=== PATIENT | female | born 1985 | race Caucasian/White ===

== ENCOUNTER 2019-05-06 15:56 | Emergency (ER) | payer OTHER ==
[~2019-05-06] VITALS: Ht 167.6 cm; Wt 106.6 kg
--- NOTE | 2019-05-06 16:11 | NUR ---
ED Nurse Note: Patient walked in c/o worsening back pain that radiates to LLE; hx of back injury 2 month while lfting heavy boxes at work. Pt is A&O x4, V/S stable with no s/s of acute distress noted at this time. Pt rates pain at 8/10. PA at bedside evaluating the pt.
[2019-05-06 16:17] VITALS: BP 123/75
[2019-05-06] MEDS ORDERED: CELEXA20 MG ORAL (16:20)
[2019-05-06] MEDS ORDERED: SYNTHROID150 MCG ORAL (16:20)
[2019-05-06] MEDS ORDERED: WELLBUTRIN XL150 MG ORAL (16:20)
[2019-05-06] MEDS ORDERED: LEVONO-E ESTRA1 EACH PO (16:21)
[2019-05-06] MEDS ORDERED: Ketorolac 30mg Inj IM ONE (17:00)
--- NOTE | 2019-05-06 17:48 | Emergency Room Report ---
History of Present Illness General Chief Complaint: Back Pain-No Injury Source: Patient Present Illness HPI 33-year-old female presents to the emergency department complaining of 6 out of 10 severity left-sided low back pain with intermittent radiation down into the left thigh and left calf. Patient reports this symptom is been going on for 2 months and she also has another complaint of right calf pain acute onset x4 days. Patient denies trauma or fall. Patient reports that onset of her back pain was appreciated after lifting a heavy box while at work. Patient states that she has been treating it conservatively at home with rest, heat, ice and ibuprofen. Patient reports she has had no relief of her symptoms. Patient denies smoking history she reports she is on oral control she denies prolonged sitting/ travel. Denies chest pain, shortness of breath, palpitations or hemoptysis. Saddle anesthesia, incontinence or urinary retention. 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 Hx Pacemaker: No Hx Asthma: No Hx COPD: No Hx Diabetes: No Hx Cancer: Yes - Hodgkin's disease Hx Gastrointestinal Problems: No Hx Dialysis: No History Of Psychiatric Problem: No Hx Neurological Problems: No Hx Cerebrovascular Accident: No Hx Seizures: No Review of Systems All Other Systems: negative except mentioned in HPI Physical Exam Vital Signs Date Time Temp Pulse Resp B/P (MAP) Pulse Ox O2 Delivery O2 Flow Rate FiO2 05/06/19 16:11 98.1 95 18 123/75 (91) 97 Room Air Sp02 EP Interpretation: reviewed, normal General Appearance: no apparent distress, alert, GCS 15, non-toxic Head: normocephalic, atraumatic Eyes: bilateral eye normal inspection, bilateral eye PERRL ENT: hearing grossly normal, normal voice Neck: full range of motion Respiratory: chest non-tender, lungs clear, normal breath sounds, speaking full sentences Cardiovascular #1: regular rate, rhythm, no edema Cardiovascular #2: 2+ dorsalis pedis (R) - post. tibial, 2+ dorsalis pedis (L) - post tibial Gastrointestinal: normal bowel sounds, non tender, soft Rectal: deferred Genitourinary: normal inspection Musculoskeletal: back normal, gait/station normal - Compensatory gait, favoring the right leg., normal range of motion, calf tenderness - Right, other - negative White test. Positive Homans sign, no appreciable discrepancy in calf diameter or ankle diameter., tender - Tenderness to palpation of the left paraspinal musculature of the lumbar area and upper gluteus christofer. No midline spinous process tenderness or step-off. Neurologic: alert, oriented x3, responsive, motor strength/tone normal, sensory intact, speech normal, grossly normal Psychiatric: judgement/insight normal Skin: normal color, normal inspection Medical Decision Making PA Attestation Dr. Montes De Oca is my supervising Physician whom patient management has been discussed with. Diagnostic Impression: Primary Impression: Strain, lumbosacral Qualified Codes: S39.012A - Strain of muscle, fascia and tendon of lower back , initial encounter Additional Impressions: Sciatic nerve pain Qualified Codes: M54.31 - Sciatica, right side Right calf pain ER Course 33-year-old female presents to the emergency department complaining of 6 out of 10 severity left-sided low back pain with intermittent radiation down into the left thigh and left calf. Patient reports this symptom is been going on for 2 months and she also has another complaint of right calf pain acute onset x4 days. Patient denies trauma or fall. Patient reports that onset of her back pain was appreciated after lifting a heavy box while at work. Patient states that she has been treating it conservatively at home with rest, heat, ice and ibuprofen. Patient reports she has had no relief of her symptoms. Patient denies smoking history she reports she is on oral control she denies prolonged sitting/ travel. Denies chest pain, shortness of breath, palpitations or hemoptysis. Saddle anesthesia, incontinence or urinary retention. Ddx considered but are not limited to Fracture, dislocation, contusion, epidural abscess, Sprain/Strain/Spasm, DVT, gastrocnemius muscle strain/tear Vital signs: are WNL, pt. is afebrile H&PE are most consistent with sciatica- Tenderness to palpation of the left paraspinal musculature of the lumbar area and upper gluteus christofer. No midline spinous process tenderness or step-off. Patient has a negative White test. Positive Homans sign, no appreciable discrepancy in calf diameter or ankle diameter. Pain only with movements that require gastrocnemius involvement. no pain at rest. no skin color or temperature changes. ORDERS: --X-ray not required at this time, no spinous process tenderness --- Left lower extremity venous ultrasound to rule out DVT--Negative ED INTERVENTIONS: -- IM Toradol 30mg. DISCHARGE: At this time pt. is stable for d/c to home. Will provide printed patient care instructions, and any necessary prescriptions. Care plan and follow up instructions have been discussed with the patient prior to discharge. CT/MRI/US Diagnostic Results CT/MRI/US Diagnostic Results : Imaging Test Ordered: VENOUS DUPLES LEFT LOWER EXTREMITY Impression Negative for DVT Last Vital Signs Date Time Temp Pulse Resp B/P (MAP) Pulse Ox O2 Delivery O2 Flow Rate FiO2 05/06/19 16:17 98.1 98 18 123/75 97 Room Air Disposition: HOME, SELF-CARE Condition: Stable Scripts Naproxen* (NAPROXEN*) 500 Mg Tablet 500 MG ORAL TWICE A WEEK, #30 TAB 0 Refills Prov: Veronica Welch 05/06/19 Methocarbamol* (ROBAXIN-750*) 750 Mg Tablet 750 MG PO QID, #30 TAB 0 Refills Prov: Veronica Welch 05/06/19 Referrals: NON PHYSICIAN (PCP) Departure Forms: Return to Work Return to Work Date: May 10, 2019 Work Restrictions: No Heavy Lifting, No Prolonged Standing Other Restrictions: LIGHT DUTY. No HEAVY LIFTING/BENDING etc.. Return to Full Activity: May 17, 2019 Patient Instructions: Sciatica, Back Pain, Adult Additional Instructions: Take medications as directed. ! ! ! Do not drink alcohol, drive, or operate heavy machinery while taking ROBAXIN ( Muscle Relaxer) as this may cause drowsiness. ! ! ! ! Follow up with an TEST PREPARATION TUTOR in 3-5 days, even if your symptoms have resolved. If symptoms persist MRI may be required at the discretion of your PCP or Ortho Specialist. --Please review list of primary care clinics, if you do not already have a primary care provider who can give you an Orthopedic Referral. Return sooner to ED if new symptoms occur, or current symptoms become worse. Do not drink alcohol, drive, or operate heavy machinery while taking ROBAXIN ( Muscle Relaxer) as this may cause drowsiness. - Please note that this Emergency Department Report was dictated using [employer] care provider technology software, occasionally this can lead to erroneous entry secondary to interpretation by the dictation equipment. Veronica Welch May 06, 2019 17:48
[2019-05-06 18:17] VITALS: BP 129/69
--- NOTE | 2019-05-06 19:16 | NUR ---
HAND-OFF: Report given to LISA Bell.
--- NOTE | 2019-05-06 19:30 | NUR ---
ED Nurse Note: ULTRASOUND AT THE BEDSIDE.
[2019-05-06] MEDS ORDERED: ROBAXIN-750750 MG PO (20:42)
[2019-05-06] MEDS ORDERED: NAPROXEN500 M2 ORAL (20:42)
[2019-05-06 20:59] VITALS: BP 129/69
--- NOTE | 2019-05-06 20:59 | NUR ---
ED Nurse Note: pt cleared to be d/c per ERMD, pt discharge and aftercare instruction provided w/ prescription, pt education done via discussion and hand out, pt advised to follow up with pcp or return to ed if changes in condition, vss, ambulatory w/ steady gait w/ crutches left w/ all belongings.
--- NOTE | 2019-05-06 21:29 | Diagnostic Imaging Report ---
EXAM: US Duplex Left Lower Extremity Veins CLINICAL HISTORY: PAIN TECHNIQUE: Real-time duplex ultrasound scan of the left lower extremity veins integrating B-mode two-dimensional vascular structure, Doppler spectral analysis, color flow Doppler imaging and compression. COMPARISON: No relevant prior studies available. FINDINGS: Deep veins: Unremarkable. No DVT in the visualized common femoral, femoral, proximal deep femoral or popliteal veins. The veins demonstrate normal color flow, are normally compressible, with normal phasic flow and/or augmentation response. The posterior tibialis vein was not identified and may be occluded. This demonstrated minimal augmentation. Superficial veins: Unremarkable. No thrombus in the visualized great saphenous vein. Soft tissues: No acute findings. No popliteal cyst. IMPRESSION: The posterior tibialis vein was not identified and may be occluded or diminutive. Otherwise, no evidence of deep vein thrombosis.
== END 2019-05-06 20:59 | disposition home or self-care (01) ==
LOC: EMR 17:45
DX: S39.012A Strain of muscle, fascia and tendon of lower back, initial encounter (principal); M54.41 Lumbago with sciatica, right side; M79.604 Pain in right leg; Z85.71 Personal history of Hodgkin lymphoma; E07.9 Disorder of thyroid, unspecified; X50.0XXA Overexertion from strenuous movement or load, initial encounter; Y92.512 Supermarket, store or market as the place of occurrence of the external cause; Y99.0 Civilian activity done for income or pay
CPT/HCPCS: 93971; 96372; 99284; J1885